=== PATIENT | female | born 1975 | race Caucasian/White ===

== ENCOUNTER 2018-09-22 07:17 | Day surgery (SDC) | payer BC ==
[2018-09-21 12:13] LABS: BASOPHILS % (AUTO) 0.5 % (0.0-5.0); EOSINOPHILS % (AUTO) 0.9 % (0.0-8.0); HEMATOCRIT 41.6 % (36-48); LYMPHOCYTES % (AUTO) 23.2 % (21.0-51.0); MEAN CORPUSCULAR HEMOGLOBIN 31.6 pg (27.0-33.0); MEAN CORPUSCULAR HGB CONC 34.7 g/dL (32.0-36.0); MEAN CORPUSCULAR VOLUME 90.9 fL (79-99); MONOCYTES % (AUTO) 7.9 % (3.0-13.0); NEUTROPHILS % (AUTO) 67.5 % (40.0-77.0); PLATELET COUNT (AUTO) 208 K/uL (130-400); RED BLOOD CELL COUNT(AUTO) 4.58 MIL/uL (4.00-5.50); RED CELL DISTRIBUTION WIDTH 13.8 % (11.0-15.5); WHITE BLOOD COUNT (AUTO) 5.6 K/uL (4.8-10.8)
[2018-09-21 12:28] VITALS: BP 140/91
[2018-09-21 12:32] LABS: CREATININE 0.8 mg/dL (0.5-1.5)
[~2018-09-22] VITALS: Ht 161.3 cm; Wt 53.3 kg
[2018-09-22] VITALS (17 sets, daily range): BP systolic 89–130; BP diastolic 53–79
[~2018-09-22 07:17] MED LIST: CALDOLOR 800MG+NS 250ML 250 ML IV SCH
[2018-09-22] MEDS ORDERED: LACTATED RINGERS 1000ML 1,000 ML IV ONE (08:02)
[2018-09-22] MEDS: CEFAZOLIN SODIUM 1 GM VIAL IVP SCH ×2 (08:03→09:06)
[2018-09-22] MEDS ORDERED: LIDOCAINE PF 2% 5ML ABBOJECT ONE (08:54)
[2018-09-22] MEDS ORDERED: ONDANSETRON HCL 4 MG/2 ML VIAL ONE (08:54)
[2018-09-22] MEDS ORDERED: DEXAMETHASONE SOD PHOSPHATE 10MG/ML 1ML VIAL ONE (08:54)
[2018-09-22] MEDS ORDERED: MIDAZOLAM HCL 1 MG/ML 2ML VIAL ONE (08:54)
[2018-09-22] MEDS ORDERED: PROPOFOL 10 MG/ML 20ML VIAL IV ONE (08:55)
[2018-09-22] MEDS ORDERED: FENTANYL CITRATE PF 50 MCG/1 ML 2ML VIAL ONE (08:56)
[2018-09-22] MEDS ORDERED: MEPERIDINE-PF 25 MG/ML SYG ONE (09:54)
== END 2018-09-22 11:00 | disposition home or self-care (01) ==
LOC: DAH 07:17
PROVIDERS: ATTEND Obstetrics & Gynecology
DX: N84.0 Polyp of corpus uteri (principal); Z98.890 Other specified postprocedural states; Z79.899 Other long term (current) drug therapy
CPT/HCPCS: 36415; 58563; 82565; 84702; 85025; 86850; 86900; 86901; 88305; A4344; A4351; A4355; J0690; J1100; J1741; J2001; J2175; J2250; J2405; J2704; J3010; J7030; J7120